=== PATIENT | male | born 1945 | race African-American/Black ===

== ENCOUNTER → 2016-10-19 | Outpatient (CLI) | payer MEDICARE, OTHER ==
[~2016-10-19] MED LIST: ASPI-119; CHOL1TAB42; CODCAP9; D-20TAB3 PO; MAGNCAP2; OLOP1DRO EACH EYE; VIAG100T PO; VITA200012 PO; [UNRECOGNIZED DRUG - CODE]; [UNRECOGNIZED DRUG - CODE]; [UNRECOGNIZED DRUG - CODE]
[2016-10-19 12:31] LABS: BLOOD, URINE NEG (NEG); GLUCOSE,URINE NEG (NEG); KETONE, URINE NEG (NEG); NITRITE,URINE NEG (NEG); SQUAMOUS EPITHELIAL CELL URINE <1 /hpf (0-5); URINE COLOR YELLOW (YELLW/STRAW)
== END ==
LOC: CLAB 11:56
PROVIDERS: ATTEND Urology
DX: C61 Malignant neoplasm of prostate (principal)
CPT/HCPCS: 36415; 81001; 84153